=== PATIENT | female | born 1955 ===

== ENCOUNTER 2017-05-18 06:41 | Outpatient (CLI) | payer OTHER ==
[~2017-05-18 06:41] MED LIST: COZAAR100 MG; LOVAZA1 G; VYTORIN 10/40 M1 TAB
== END 2017-05-18 07:06 | disposition home or self-care (01) ==
LOC: LAB 06:41
DX: E06.3 Autoimmune thyroiditis (principal); E04.2 Nontoxic multinodular goiter; E11.9 Type 2 diabetes mellitus without complications; I10 Essential (primary) hypertension; I87.2 Venous insufficiency (chronic) (peripheral); M15.0 Primary generalized (osteo)arthritis; N22 Calculus of urinary tract in diseases classified elsewhere; Z79.83 Long term (current) use of bisphosphonates

== ENCOUNTER 2017-09-01 07:26 | Outpatient (CLI) | payer OTHER | END 2017-09-01 07:30 | disposition home or self-care (01) | LOC: LAB 07:26 | DX: E06.3 Autoimmune thyroiditis (principal); E04.2 Nontoxic multinodular goiter; E11.9 Type 2 diabetes mellitus without complications; I10 Essential (primary) hypertension; I87.2 Venous insufficiency (chronic) (peripheral); M15.0 Primary generalized (osteo)arthritis; N22 Calculus of urinary tract in diseases classified elsewhere; Z79.83 Long term (current) use of bisphosphonates ==